=== PATIENT | female | born 1985 | race Caucasian/White ===

== ENCOUNTER 2016-05-14 21:53 | Emergency (ER) | payer SELFPAY | END 2016-05-15 00:24 | disposition left against medical advice (07) | LOC: ER 21:53 | DX: Z53.21 Procedure and treatment not carried out due to patient leaving prior to being seen by health care provider (principal) ==

== ENCOUNTER 2016-06-02 07:30 | Inpatient (IN) | payer MEDICAID ==
[~2016-06-02] VITALS: Ht 180.3 cm; Wt 126.1 kg
[2016-06-02 08:30] VITALS: Ht 180.3 cm; Wt 126.1 kg
[2016-06-02] MEDS ORDERED: TERBUTALINE 1 MG/ML VIAL SUBQ PRN (08:30)
[2016-06-02] MEDS ORDERED: LIDOCAINE 1% BUFFERED 1 ML SYR INTRADERM PRN (08:30)
[2016-06-02] MEDS ORDERED: ALU/MAG/SIM 30 ML UDC PO PRN (08:30)
[2016-06-02] MEDS ORDERED: FAMOTIDINE 20 MG INJ IV PRN (08:30)
[2016-06-02] MEDS ORDERED: LIDOCAINE 1% 30 ML PF INFILTRATE ONE (08:30)
[2016-06-02] MEDS ORDERED: PROMETHAZINE 25 MG/ML VIAL IV PRN (08:30)
[2016-06-02] MEDS ORDERED: ONDANSETRON 4 MG VIAL IV PUSH PRN (08:30)
[2016-06-02] MEDS ORDERED: ACETAMINOPHEN 325 MG TAB PO PRN (08:30)
[2016-06-02] MEDS ORDERED: CEFAZOLIN 3,000 MG in SODIUM CHLORIDE 0.9% 100 ML IV PRN (08:30)
[2016-06-02] MEDS ORDERED: FAMOTIDINE 20 MG TAB PO PRN (08:30)
[2016-06-02] MEDS ORDERED: OXYTOCIN 15 UNITS/250 ML NS 250 ML IV SCH (08:30)
[2016-06-02] MEDS ORDERED: AMPICILLIN 2,000 MG in SODIUM CHLORIDE 0.9% 100 ML IV ONE (08:30)
[2016-06-02] MEDS ORDERED: METOCLOPRAMIDE 10 MG/2 ML VIAL IV PUSH PRN (08:30)
[2016-06-02] MEDS: OXYTOCIN 15 UNITS/250 ML NS 250 ML IV SCH (08:58)
[2016-06-02] MEDS: LACT RINGERS 1,000 ML IV SCH ×3 (08:59→18:40)
[2016-06-02] MEDS ORDERED: BUPIVACAINE 0.5% PF 10ML EPIDURAL ONE (09:52)
[2016-06-02] MEDS ORDERED: MEPERIDINE 25 MG/ML IV ONE (09:54)
[2016-06-02] MEDS ORDERED: ONDANSETRON 4 MG VIAL IV PUSH ONE (09:54)
[2016-06-02] MEDS ORDERED: PHENYLEPHRINE 10 MG/ML VIAL IV ONE (09:54)
[2016-06-02] MEDS ORDERED: DEXAMETHASONE 4 MG/ML VIAL IV ONE (09:54)
[2016-06-02] MEDS: AMPICILLIN 1,000 MG in SODIUM CHLORIDE 0.9% 50 ML IV SCH ×3 (14:32→22:35)
[2016-06-03] VITALS (17 sets, daily range): BP systolic 111–144; RESP 12–24; TEMP 97.9–98.1
[2016-06-03] MEDS: OXYTOCIN 15 UNITS/250 ML NS 250 ML IV SCH (02:37)
[2016-06-03] MEDS: AMPICILLIN 1,000 MG in SODIUM CHLORIDE 0.9% 50 ML IV SCH ×4 (02:37→12:30)
[2016-06-03] MEDS ORDERED: FENTANYL 100 MCG/2 ML AMP ONE (07:27)
[2016-06-03] MEDS ORDERED: ROPIV/FENT 0.2%-2MCG/ML 100 ML EPIDURAL ONE (07:27)
[2016-06-03] MEDS ORDERED: LACT RINGERS 500 ML IV ONE (08:15)
[2016-06-03] MEDS ORDERED: FENTANYL 100 MCG/2 ML AMP EPIDURAL ONE (08:15)
[2016-06-03] MEDS ORDERED: SODIUM CHLORIDE 0.9% 500 ML IV PRN (08:15)
[2016-06-03] MEDS ORDERED: ROPIV/FENT 0.2%-2MCG/ML 100 ML EPIDURAL SCH (08:15)
[2016-06-03] MEDS ORDERED: LACT RINGERS 500 ML IV PRN (08:15)
[2016-06-03] MEDS ORDERED: CEFAZOLIN (LD/OB) 0 ML IV ONE (13:18)
[2016-06-03] MEDS ORDERED: DIPHENHYDRAMINE 50 MG/ML VIAL IV PRN (13:50)
[2016-06-03] MEDS ORDERED: MEPERIDINE 25 MG/ML IV PRN (13:50)
[2016-06-03] MEDS ORDERED: PROMETHAZINE 25 MG/ML VIAL IV PRN (13:50)
[2016-06-03] MEDS ORDERED: OXYCODONE 5 MG TAB PO PRN (13:50)
[2016-06-03] MEDS ORDERED: ONDANSETRON 4 MG VIAL IV PRN ×2 (13:50)
[2016-06-03] MEDS ORDERED: MORPHINE 4 MG/ML SYR IV PRN ×2 (13:50)
[2016-06-03] MEDS ORDERED: MORPHINE 2 MG/ML SYR IV PRN ×2 (13:50)
[2016-06-03] MEDS ORDERED: NALOXONE 0.4 MG/ML AMP IV PRN (13:50)
[2016-06-03] MEDS ORDERED: SALINE FLUSH 10 ML FLUSH PRN (13:50)
[2016-06-03] MEDS ORDERED: BUTORPHANOL 2 MG/ML VIAL IV PRN (13:50)
[2016-06-03] MEDS ORDERED: MISOPROSTOL 100 MCG TAB ONE (14:08)
[2016-06-03] MEDS ORDERED: MAG HYDROX 30 ML UDC PO PRN (14:25)
[2016-06-03] MEDS ORDERED: TDaP 0.5 ML VIAL IM.VACC ONE (14:25)
[2016-06-03] MEDS ORDERED: OXYTOCIN 15 UNITS/250 ML NS 250 ML IV SCH (14:25)
[2016-06-03] MEDS ORDERED: MEASLES,MUMPS,RUBELLA VAC SUBQ.VACC ONE (14:25)
[2016-06-03] MEDS: DILAUDID 1 MG/ML AMP IV PRN ×2 (15:10→16:45)
[2016-06-03] MEDS: KETOROLAC 30 MG/ML VIAL IV SCH ×2 (17:04→23:26)
[2016-06-03] MEDS: LACT RINGERS 1,000 ML IV SCH (18:00)
[2016-06-03] MEDS: SALINE FLUSH 10 ML FLUSH SCH (20:00)
[2016-06-03] MEDS ORDERED: **ONLY ANESTEHSIA MAY ORDER OPIATES WHILE ON EPIDURAL XX SCH (20:00)
[2016-06-03] MEDS: CEFAZOLIN 3,000 MG in SODIUM CHLORIDE 0.9% 100 ML IV SCH (21:29)
[2016-06-03] MEDS ORDERED: CEFAZOLIN 3,000 MG in SODIUM CHLORIDE 0.9% 100 ML IV SCH (22:00)
[2016-06-04] MEDS: LACT RINGERS 1,000 ML IV SCH (01:12)
[2016-06-04 01:26] VITALS: BP_SYST 114; RESP 20; TEMP 98.1
[2016-06-04] MEDS ORDERED: MISSING DOSE XX ONE (05:15)
[2016-06-04 05:20] VITALS: BP_SYST 123; RESP 16; TEMP 97.7
[2016-06-04] MEDS: KETOROLAC 30 MG/ML VIAL IV SCH ×2 (05:23→12:17)
[2016-06-04] MEDS: CEFAZOLIN 3,000 MG in SODIUM CHLORIDE 0.9% 100 ML IV SCH (05:54)
[2016-06-04] MEDS ORDERED: SODIUM CHLORIDE 0.9% FLUSH BAG 500 ML IV SCH (06:00)
[2016-06-04] MEDS: SALINE FLUSH 10 ML FLUSH SCH (08:00)
[2016-06-04] MEDS: DOCUSATE SOD 100 MG CAP PO SCH (09:21)
[2016-06-04 09:41] VITALS: BP_SYST 114; RESP 18; TEMP 97.6
[2016-06-04 13:16] VITALS: BP_SYST 116; RESP 18; TEMP 98.3
[2016-06-04 17:13] VITALS: BP_SYST 137; RESP 20; TEMP 98
[2016-06-04] MEDS: Ibuprofen 600 MG TAB PO SCH ×2 (17:37→23:16)
[2016-06-04] MEDS: OXYCODONE/APAP 5/325 TAB PO PRN ×3 (17:39→23:16)
[2016-06-05 05:37] VITALS: BP_SYST 124; RESP 16; TEMP 98.2
[2016-06-05] MEDS: Ibuprofen 600 MG TAB PO SCH ×2 (05:39→12:06)
[2016-06-05 05:40] VITALS: BP_SYST 122
[2016-06-05] MEDS: OXYCODONE/APAP 5/325 TAB PO PRN ×3 (05:40→14:24)
[2016-06-05] MEDS: DOCUSATE SOD 100 MG CAP PO SCH (08:23)
[2016-06-05 09:16] VITALS: BP_SYST 113; TEMP 97.8
[2016-06-05 09:17] VITALS: RESP 18
[2016-06-05 14:38] VITALS: BP_SYST 113; RESP 18; TEMP 97.8
== END 2016-06-05 15:13 | disposition home or self-care (01) | DRG 766 ==
LOC: LD 08:00 → OB 06-03 16:57
PROVIDERS: ADMIT Obstetrics & Gynecology; ATTEND Obstetrics & Gynecology
PROC: 3E033VJ Introduction of Other Hormone into Peripheral Vein, Percutaneous Approach (ICD-10-PCS; 2016-06-02)
PROC: 10D00Z1 Extraction of Products of Conception, Low, Open Approach (ICD-10-PCS; principal; 2016-06-03)
PROC: 10907ZC Drainage of Amniotic Fluid, Therapeutic from Products of Conception, Via Natural or Artificial Opening (ICD-10-PCS; 2016-06-03)
DX: O26.86 Pruritic urticarial papules and plaques of pregnancy (PUPPP) (principal); Z37.0 Single live birth; O62.0 Primary inadequate contractions
CPT/HCPCS: 80053; 82803; 85025